=== PATIENT | female | born 1965 | race Caucasian/White ===

== ENCOUNTER 2023-06-16 18:26 | Emergency (ER) | payer MEDICARE ==
[~2023-06-16] VITALS: Ht 160 cm; Wt 66.8 kg
[2023-06-16 18:41] VITALS: TEMP 98.6; O2SAT 100
[2023-06-16] MEDS ORDERED: SULF1TAB48 MT (19:47)
[2023-06-16] MEDS ORDERED: CETI-338 PO (19:47)
[2023-06-16] MEDS ORDERED: CLIN-194 PO (19:47)
[2023-06-16 20:00] VITALS: BP 128/62; PULSE 69; RESP 16
== END 2023-06-16 20:19 | disposition home or self-care (01) ==
LOC: ER 18:26
DX: L03.116 Cellulitis of left lower limb (principal); L03.114 Cellulitis of left upper limb; L03.113 Cellulitis of right upper limb
CPT/HCPCS: 99283